=== PATIENT | male | born 1940 | race Caucasian/White ===

== ENCOUNTER 2017-04-17 20:19 | Inpatient (IN) | payer MEDICARE, OTHER ==
[~2017-04-17] VITALS: Ht 152.4 cm; Wt 63.5 kg
--- NOTE | ~2017-04-17 | PR ---
[place], [place] PROGRESS NOTE NAME: MARLIN CASTANEDA UNIT #: [id number] ROOM: 316 DOCTOR: VIOLA SEGOVIA BIRTHDATE: [birth year] DOS: CHIEF COMPLAINT: "I ate all I want." SUMMARY OF THE VISIT: He was seen in the dining room where his tray had already been taken away. His appetite is fair to poor. He states that he slept well last night. His affect is flat. His mood is appropriate. He just wanders the unit pretty much all day. He is not quite sure what to do with himself. PLAN: We will today increase his Namenda to 10 mg b.i.d. and continue to titrate his dementia meds in order to get him to a point where he can be safely discharged. We will continue to engage him in individual and clark milieu and discharge him to the least restrictive environment when psychologically stable. Viola Segovia NP CM:PNTRANS [phone] VIOLA SEGOVIA 04/22/172139 interface
--- NOTE | ~2017-04-17 | DS ---
[place], [place] DISCHARGE SUMMARY NAME: MARLIN CASTANEDA UNIT #: [id number] ROOM: 316 DOCTOR: VIOLA SEGOVIA BIRTHDATE: [birth year] DOS: 04/24/2017 CHIEF COMPLAINT: This morning, hello. HISTORY OF PRESENT ILLNESS: He came in from [facility] where he is indeed disruptive, urinating all over the facility. He came into the ER at [facility] and was medically cleared and then was sent here for admission to the Behavioral Health Unit. Since he has been here, he has had his medications adjusted. He had a urine sample sent. His Exelon patch has been increased since he has been here. He has been started on Namenda and that dosage has been maximized to treat the dementia. He is now stable. He is walking around the unit, becomes anxious a little bit whenever there is a lot going on the unit, but otherwise, he is very stable. He kind of walks around, does not exit seeking or anything like that. He has been sleeping well through the night according to the staff. MENTAL STATUS AT DISCHARGE: He is alert, pleasantly confused. He is oriented pretty much to himself. DIAGNOSIS: Brief psychotic disorder. DISPOSITION: He will be discharged to an assisted living facility of his family's choice. director of physiotherapy services is making arrangements for that. His scripts have been printed and will be sent with him whenever he is ready to go. He is stable at this time. Viola Segovia NP CM:DISCHARG [phone] VIOLA SEGOVIA 04/24/17 1314 interface
--- NOTE | ~2017-04-17 | PR ---
[place], [place] PROGRESS NOTE NAME: MARLIN CASTANEDA UNIT #: [id number] ROOM: 316 DOCTOR: VIOLA SEGOVIA BIRTHDATE: [birth year] DOS: 04/21/2017 CHIEF COMPLAINT: "I don't know." SUMMARY OF THE VISIT: He was seen ambulating around the dining room kind of looking lost. He had eaten just a small portion of his breakfast, but started eating again when he was redirected back to it. He remains confused, but very pleasant and alert. His voice is very low tone. He has had no behaviors according to staff. Slept well. Over the weekend, we started him on vitamin B and vitamin D because he did show deficiencies. PLAN: Today, I increased his Exelon patch to 13.3 mg daily to maximize therapy. He was also started on Vraylar, which we will likely titrate up. He did not appear to be having any kind of hallucinations or anything like that today. The plan is to further titrate his Exelon and his Namenda to maximize them and also to increase the Vraylar as needed. He was in an assisted living. He will most likely be discharged to a more secure level of care. We will continue to try to engage him in individual and clark milieu and discharge him when he is psychologically stable. Viola Segovia NP CM:NIKOLAI [phone] VIOLA SEGOVIA 04/22/17250 interface
--- NOTE | ~2017-04-17 | PR ---
[place], [place] PROGRESS NOTE NAME: MARLIN CASTANEDA UNIT #: [id number] ROOM: 316 DOCTOR: AZIZA GODWIN BIRTHDATE: [birth year] DOS: 04/20/2017 CHIEF COMPLAINT: The patient is nonverbal. SUMMARY OF VISIT: The patient was much more alert and oriented this morning. He was sitting in a Shelby chair, eating oatmeal. I will ask him questions, he will look at me and then he will look back at the table and start picking at things on the table. Nursing noted that he is very restless. He is responding some type of visual hallucination. He crawls on the floor at times and picks at things. He is however up and walking, which he had not been before. He is redirectable and pleasant. There is no aggression there, but as he is becoming more alert, the restlessness and the hallucinations are more apparent. MENTAL STATUS: Alert and oriented to person. I do not know about place and time. Visual hallucinations definitely may be some delusions, no paranoia. No adryan or hypomania, exceedingly poor short term memory. PLAN: I started him on the vitamin B and D yesterday because of his deficiencies. He is on the maximum dose of Exelon and Namenda for his dementia. No real behaviors just this hallucination going on so I am going to start Vraylar 3 mg q.a.m. and see if this will help break his psychosis. I also want to follow up with nursing and the hospitalist to see if they are planning on treating his urine from 04/18/2017, it looks like possible UTI. I do not know if this gets contaminated or if they just waiting for cultures and sensitivity. EDER GODWIN CNP CM:PNTRANS 44 AZIZA GODWIN 04/20/171644 interface
--- NOTE | ~2017-04-17 | PR ---
[place], [place] PROGRESS NOTE NAME: MARLIN CASTANEDA UNIT #: [id number] ROOM: 316 DOCTOR: VIOLA SEGOVIA BIRTHDATE: [birth year] DOS: CHIEF COMPLAINT: This morning, the patient was nonverbal, but did smile. SUMMARY OF THE VISIT: He was sitting at the dining room table waiting his breakfast. His voice is still very low tone. He is still very confused, but pleasantly so. He is not wandering as much as he had been either. He was smiling when I was asking him questions and did reply to the questions. He reported though that he did not sleep and staff reported that he slept for about 7 hours last night. He was started on Vraylar yesterday and we are continuing to adjust that as we need to. PLAN: We will continue to monitor him, adjust the Vraylar as we need to and plan for discharge in the next couple of days to the least restrictive environment. We will continue to try to engage him in individual and clark milieu. Viola Segovia NP CM:NIKOLAI [phone] VIOLA SEGOVIA 04/23/172025 interface
--- NOTE | ~2017-04-17 | PR ---
[place], [place] PROGRESS NOTE NAME: MARLIN CASTANEDA UNIT #: [id number] ROOM: 316 DOCTOR: AZIZA GODWIN BIRTHDATE: [birth year] DOS: 04/19/2017 CHIEF COMPLAINT: Nonverbal. SUMMARY OF VISIT: The patient was assessed in the dining room where he was reclining in a Shelby chair. He does have UTI. He was nonverbal with me. Does prefer to sleep in the chair at night. He did so for about 3 hours. Nursing is still trying to encourage him, redirect him into the bed, but for now he does seem to prefer the chair. So, we need to monitor for decubitus ulcers, get him moving around a little bit more, get that UTI treated and go from there. MENTAL STATUS EXAMINATION: He is alert to name only. No overt signs of auditory or visual hallucinations, delusions, paranoia, adryan or hypomania. Very poor short-term memory. PLAN: His labs came back. His vitamin B12 is elevated a little bit, this is fine. He is severely vitamin D deficient. I started him on vitamin D supplementation 50,000 international units every week. We increased his Exelon yesterday. He is on the maximum dose of both the Exelon and Namenda at this point in time. There are no behaviors, so I am not going to really add anything. I want to see how he does over the next 24 hours. Let see as the UTI gets treated if some of these behaviors, the facility was seeing, subside and we can go from there. EDER GODWIN CNP CM:PNTRANS [phone] AZIZA GODWIN 04/19/17 1124 interface
--- NOTE | ~2017-04-17 | PR ---
[place], [place] PROGRESS NOTE NAME: MARLIN CASTANEDA UNIT #: [id number] ROOM: 316 DOCTOR: PRASANTHDAYSILYNDA BIRTHDATE: [birth year] DOS: 04/18/2017 INITIAL PSYCH NOTE CHIEF COMPLAINT: "I am fine." HISTORY OF THE PRESENT ILLNESS: He was admitted from assisted living facility where he was being disruptive. He was urinating all over the place. He was picking at the carpet to the point where the family lost their security deposit on his apartment. He was taken to [facility] and medically cleared and then admitted here to the [facility]. He slept well last night. PAST MEDICAL HISTORY: Dementia, depression, hematuria, and vitamin B12 deficiency. MENTAL STATUS EXAMINATION: He is awake and alert, oriented to self pretty much. Mood seems to be appropriate at this time. Staff reports that they had no problems with him overnight at all. His speech is very low tone. He gives very short answers to questions. There is no hypomania or adryan. No overt audiovisual hallucinations and he does not seem to have any delusions or paranoia. His processing is a little bit slowed. When you ask him a question, he does make eye contact, but it takes him a little while to answer the question. Kind of difficult to ascertain his long and short term memory, but I would think there would be some impairment there due to his dementia. The diagnosis for admission is a brief psychotic disorder. This is a new behavior for him. PLAN: We will get some baseline labs. We need to still collect a urine on him. They have not been able to collect that yet. We also have increased his Exelon patch with the goal to maximize the therapy for his dementia on both the Exelon and the Namenda. He does not appear to be anxious at this time, but has a history of anxiety, so we will address that if it does come out. [place], [place] PROGRESS NOTE NAME: MARLIN CASTANEDA UNIT #: [id number] ROOM: 316 DOCTOR: PRASANTHLYNDA TAVAREZ BIRTHDATE: [birth year] Lynda Segovia NP CM:PNJAMEEL [phone] LYNDA SEGOVIA 04/18/172336 interface
[~2017-04-17 20:19] MED LIST: ARICEPT5 M1 PO; HYDR1000 IM
[2017-04-17] MEDS ORDERED: KLONOPIN0.5 MG PO ×2 (20:43→20:49)
[2017-04-17] MEDS ORDERED: CELEXA20 MG PO (20:44)
[2017-04-17] MEDS ORDERED: NAMENDA10 MG PO (20:46)
[2017-04-17] MEDS ORDERED: EXELON4.6 MG/24 TD (20:47)
[2017-04-17] MEDS ORDERED: ATIVAN0.5 MG PO (20:48)
[2017-04-17] MEDS ORDERED: HYDR1000 IM (21:03)
[2017-04-17 22:39] VITALS: BP 126/59
[2017-04-18 06:58] LABS: BASO % 0.8 % (0.0-1.0); EOS # 0.2 10*3/uL (0.0-0.4); EOS % 3.8 % (1.0-4.0); HEMATOCRIT 41.3 % (42.0-52.0); HEMOGLOBIN 14.6 g/dl (14.0-18.0); LYMPH # 0.6 10*3/uL (1.3-4.4); LYMPH % 13.6 % (27.0-41.0); MEAN CELL VOLUME 89.2 fl (80.0-94.0); MEAN CORPUSCULAR HGB 31.5 pg (27.0-31.0); MEAN CORPUSCULAR HGB CONC 35.4 g/dl (33.0-37.0); MEAN PLATELET VOLUME 9.3 fl (9.6-12.3); MONO # 0.4 10*3/uL (0.1-1.0); MONO % 8.3 % (3.0-9.0); NEUT # 3.5 10*3/uL (2.3-7.9); NEUT % 73.3 % (47.0-73.0); PLATELET COUNT AUTOMATED 151 10*3/uL (130-400); RED BLOOD COUNT 4.63 10*6/uL (4.50-5.90); RED CELL DISTRI WIDTH 11.9 % (0-14.5); WHITE BLOOD COUNT 4.7 10*3/uL (4.8-10.8)
[2017-04-18 07:11] LABS: ALBUMIN 3.4 gm/dl (3.1-4.5); ALKALINE PHOSPHATASE 100 U/L (45-117); BILIRUBIN, TOTAL 0.7 mg/dl (0.2-1.0); BUN 12 mg/dl (7-24); CARBON DIOXIDE 30 mmol/L (21-32); CHLORIDE 106 mmol/L (98-107); CHOLESTEROL 191 mg/dL (<200); EST GLOM FILT AFRICAN AMERICAN > 60 ml/min; GLUCOSE 83 mg/dL (65-99); POTASSIUM 4.4 mmol/L (3.5-5.1); SGOT/AST 21 IU/L (3-35); SGPT/ALT 17 U/L (12-78); SODIUM 142 mmol/L (136-145); TOTAL PROTEIN 6.4 gm/dL (6.4-8.2); TRIGLYCERIDES 127 mg/dl (<150); VLDL CHOLESTEROL 25 mg/dL (6-40)
[2017-04-18 07:13] LABS: HDL CHOLESTEROL 46 mg/dl (40-60); LDL CHOLESTEROL 120 mg/dL (9-159)
[2017-04-18 07:20] LABS: THYROID STIM HORMONE (HS) 0.764 uIU/ml (0.358-4.75)
[2017-04-18 08:00] VITALS: BP 109/55
[2017-04-18 09:51] LABS: VITAMIN D, 25-HYDROXY 10.4 ng/mL (30-100)
[2017-04-18 09:52] LABS: FOLIC ACID 17.49 ng/mL (>5.38)
[2017-04-18 13:52] LABS: BILIRUBIN NEGATIVE (NEGATIVE); BLOOD 3+ (NEGATIVE); CLARITY CLOUDY (CLEAR); COLOR YELLOW (YELLOW); GLUCOSE NEGATIVE (NEGATIVE); KETONE NEGATIVE (NEGATIVE); LEUKO ESTERASE TRACE (NEGATIVE); NITRITE NEGATIVE (NEGATIVE); PH 6.5 (5.0-9.0); PROTEIN NEGATIVE (NEGATIVE)
[2017-04-18 14:34] LABS: BACTERIA 3+; RBC 41-50 rbc/hpf (0-2); URINE REFLEX COMMENT YES (NO); WBC 21-30 wbc/hpf (0-5)
[2017-04-18 20:11] VITALS: BP 154/62
[2017-04-19 07:49] LABS: VITAMIN D, 25-HYDROXY 16.4 ng/mL (30-100)
[2017-04-19 08:25] VITALS: BP 141/69
[2017-04-19 19:57] VITALS: BP 124/72
[2017-04-20 08:00] VITALS: BP 125/68
[2017-04-20 19:45] VITALS: BP 129/76
[2017-04-21 07:50] VITALS: BP 110/69
[2017-04-21 19:59] VITALS: BP 134/84
[2017-04-22 08:02] VITALS: BP 139/74
[2017-04-22 20:00] VITALS: BP 129/82
[2017-04-23 09:50] VITALS: BP 145/71
[2017-04-23 19:50] VITALS: BP 144/82
[2017-04-24 08:33] VITALS: BP 139/79
[2017-04-24] MEDS ORDERED: EXELON13.3 MG/21 T (09:22)
[2017-04-24] MEDS ORDERED: MEMANTINE HCL10 MG PO (09:22)
[2017-04-24] MEDS ORDERED: VRAYLAR3 MG PO (09:22)
[2017-04-24] MEDS ORDERED: CITALOPRAM HYDR20 MG PO (09:22)
[2017-04-24] MEDS ORDERED: TYLENOL325 M2 PO (14:07)
[2017-04-24] MEDS ORDERED: VITAMIN D50000 I3 PO (14:07)
[2017-04-24 20:12] VITALS: BP 133/54
== END 2017-04-24 20:40 | disposition home or self-care (01) | DRG 885 ==
LOC: 3N 20:19
PROVIDERS: Registered Nurse
DX: F23 Brief psychotic disorder (principal); G30.8 Other Alzheimer's disease; N39.0 Urinary tract infection, site not specified; F02.80 Dementia in other diseases classified elsewhere, unspecified severity, without behavioral disturbance, psychotic disturbance, mood disturbance, and anxiety; E53.8 Deficiency of other specified B group vitamins; F32.9 Major depressive disorder, single episode, unspecified; Z79.899 Other long term (current) drug therapy

== ENCOUNTER 2017-08-22 12:07 | Inpatient (IN) | payer MEDICARE, OTHER ==
[~2017-08-22] VITALS: Ht 167.6 cm; Wt 57.8 kg
[~2017-08-22 12:07] MED LIST changes: +ATIVAN0.5 MG PO; +CELEXA20 MG PO; +CITALOPRAM HYDR20 MG PO; +EXELON13.3 MG/21 T; +EXELON4.6 MG/24 TD; +KLONOPIN0.5 MG PO; +MEMANTINE HCL10 MG PO; +NAMENDA10 MG PO; +TYLENOL325 M2 PO; +VITAMIN D50000 I3 PO; +VRAYLAR3 MG PO
[2017-08-22 12:21] VITALS: BP 123/68
[2017-08-22 12:49] LABS: BASO % 0.8 % (0.0-1.0); EOS # 0.1 10*3/uL (0.0-0.4); HEMATOCRIT 40.3 % (42.0-52.0); HEMOGLOBIN 14.1 g/dl (14.0-18.0); LYMPH # 0.7 10*3/uL (1.3-4.4); LYMPH % 18.4 % (27.0-41.0); MEAN CORPUSCULAR HGB 31.8 pg (27.0-31.0); MEAN PLATELET VOLUME 9.5 fl (9.6-12.3); MONO # 0.4 10*3/uL (0.1-1.0); MONO % 11.5 % (3.0-9.0); NEUT # 2.4 10*3/uL (2.3-7.9); NEUT % 66.3 % (47.0-73.0); PLATELET COUNT AUTOMATED 127 10*3/uL (130-400); RED BLOOD COUNT 4.43 10*6/uL (4.50-5.90); RED CELL DISTRI WIDTH 12.6 % (0-14.5); WHITE BLOOD COUNT 3.7 10*3/uL (4.8-10.8)
[2017-08-22 12:58] LABS: ACT PARTIAL THROMBO TIME 24.7 SECONDS (20.8-31.5)
[2017-08-22 13:03] LABS: ALBUMIN 3.8 gm/dl (3.1-4.5); ALKALINE PHOSPHATASE 86 U/L (45-117); BUN 15 mg/dl (7-24); CHLORIDE 107 mmol/L (98-107); CREATININE 1.26 mg/dL (0.70-1.30); LIPASE 389 U/L (73-393); MAGNESIUM 2.1 mg/dL (1.5-2.1); SGOT/AST 21 IU/L (3-35); SGPT/ALT 19 U/L (12-78); SODIUM 142 mmol/L (136-145); TOTAL PROTEIN 6.6 gm/dL (6.4-8.2)
[2017-08-22 13:04] LABS: TROPONIN I < 0.015 ng/ml (<0.045)
--- NOTE | 2017-08-22 14:28 | NUR ---
HAD TO STRAIGHT CATH PATIENT FOR URINE. NOTICED BLOOD IN URINE AFTER CATH
[2017-08-22 14:37] LABS: BILIRUBIN 1+ (NEGATIVE); BLOOD 3+ (NEGATIVE); CLARITY CLOUDY (CLEAR); COLOR RED (YELLOW); GLUCOSE NEGATIVE (NEGATIVE); KETONE TRACE (NEGATIVE); LEUKO ESTERASE TRACE (NEGATIVE); NITRITE POSITIVE (NEGATIVE); PH 5.5 (5.0-9.0); SPECIFIC GRAVITY 1.025 (1.005-1.030)
[2017-08-22 14:46] LABS: RBC TNTC rbc/hpf (0-2)
--- NOTE | 2017-08-22 16:39 | NUR ---
PATIENT HAS IV NORMAL SALINE INFUSING AT 125 AT TIME OF ADMISSION
[2017-08-22 17:10] VITALS: BP 141/79
[2017-08-22] MEDS ORDERED: EXEL13.31 T (17:12)
--- NOTE | 2017-08-22 17:15 | NUR ---
Time: 1714 A 77 year old MALE admitted to under services of EMILY QUISPE DO. Pt. arrived via stretcher from ER. Chief complaint: UTI, METABOLIC ENC. MELYSSA METCALF
--- NOTE | 2017-08-22 17:33 | NUR ---
[facility] CALLED RE: TO SEE IF PT HAD FLU SHOT. NURSE THERE STATES SHE DOESN'T KNOW. NOTHING IS IN PT CHART. SON IS HERE WITH PT, BUT STATES HIS DAUGHTER TAKES CARE OF THAT. MESSAGE LEFT ON [employer] PHONE FOR A CALL BACK TO SEE IF PT HAD FLU SHOT. WILL AWAIT RETURN CALL.
--- NOTE | 2017-08-22 17:42 | NUR ---
GRADDAUGHTER CALLS AND STATES PT HAD FLU SHOT THE END OF JUNE.
--- NOTE | 2017-08-22 17:48 | NUR ---
MED REC COMPLETE. DR ROBLES CALLED AND NOTIFIED.
--- NOTE | 2017-08-22 19:30 | NUR ---
PATIENT SETTING OFF BED ALARM. PATIENT CONFUSED, DOESNT ANSWER QUESTION. PATIENT NOT COMBATIVE. PATIENT IS DRINKING WATER. STILL SLUMPED OVER, DOESNT WANT TO LIE DOWN. WILL CONTINUE TO MONITOR.
[2017-08-22 20:00] VITALS: BP 141/78
[2017-08-23] VITALS: BP 96/50
[2017-08-23 06:15] LABS: BASO % 1.1 % (0.0-1.0); EOS # 0.1 10*3/uL (0.0-0.4); HEMATOCRIT 35.1 % (42.0-52.0); HEMOGLOBIN 12.1 g/dl (14.0-18.0); LYMPH # 0.5 10*3/uL (1.3-4.4); LYMPH % 13.3 % (27.0-41.0); MEAN CELL VOLUME 92.6 fl (80.0-94.0); MEAN CORPUSCULAR HGB 31.9 pg (27.0-31.0); MEAN CORPUSCULAR HGB CONC 34.5 g/dl (33.0-37.0); MONO # 0.3 10*3/uL (0.1-1.0); NEUT # 2.7 10*3/uL (2.3-7.9); NEUT % 73.1 % (47.0-73.0); PLATELET COUNT AUTOMATED 100 10*3/uL (130-400); RED BLOOD COUNT 3.79 10*6/uL (4.50-5.90); RED CELL DISTRI WIDTH 12.8 % (0-14.5); WHITE BLOOD COUNT 3.7 10*3/uL (4.8-10.8)
[2017-08-23 06:26] LABS: BUN 13 mg/dl (7-24); CHLORIDE 108 mmol/L (98-107); CHOLESTEROL 178 mg/dL (<200); CREATININE 1.07 mg/dL (0.70-1.30); MAGNESIUM 2.1 mg/dL (1.5-2.1); PHOSPHOROUS 2.9 mg/dL (2.5-4.9); POTASSIUM 3.9 mmol/L (3.5-5.1); SGOT/AST 15 IU/L (3-35); SGPT/ALT 15 U/L (12-78); SODIUM 144 mmol/L (136-145); TOTAL PROTEIN 5.3 gm/dL (6.4-8.2); TRIGLYCERIDES 71 mg/dl (<150); VLDL CHOLESTEROL 14 mg/dL (6-40)
[2017-08-23 06:27] LABS: INTERNATIONAL NORM RATIO 1.1 (2.0-3.5)
[2017-08-23 06:33] LABS: ALKALINE PHOSPHATASE 72 U/L (45-117); HDL CHOLESTEROL 52 mg/dl (40-60); LDL CHOLESTEROL 112 mg/dL (9-159); THYROID STIM HORMONE (HS) 0.904 uIU/ml (0.358-4.75)
[2017-08-23 08:00] VITALS: BP 140/76
[2017-08-23 09:11] LABS: VITAMIN D, 25-HYDROXY 91.3 ng/mL (30-100)
--- NOTE | 2017-08-23 09:23 | NUR ---
PATIENT IS SITTING UP IN BED. PATIENT IS AWAKE AND ALERT, BUT IS UNABLE TO ANSWER QUESTIONS. PATIENT NEED ASSISTANCE W/FEEDING. PATIENT HAS IV SITE WRAPPED AND TAPED TO PREVENT PULLING. PATIENT WAS PLEASANT AND COOPERATIVE DURING ASSESSMENT. CALL LIGHT SYSTEM WAS REINFORCED AND WITHIN REACH.
[2017-08-23 12:00] VITALS: BP 164/84
[2017-08-23 16:00] VITALS: BP 148/89
--- NOTE | 2017-08-23 18:50 | NUR ---
IM GEODON GIVEN FOR AGITATION. WILL MONITOR.
--- NOTE | 2017-08-23 19:30 | NUR ---
PT. SLEEPING UPON ENTERING ROOM. PT AWAKENED TO NAME AND SHOULDER SHAKE. PT. GIVEN GEODON AT 1841 BY PREVIOUS NURSE. PT. WENT BACK TO SLEEP, WITH EASY, UNLABORED RESPIRATIONS ON INSPECTION. ASSESSMENT COMPLETED AT THIS TIME, S1S2, LUNGS DIMINISHED BUT CLEAR T/O. CALL LIGHT WITHIN REACH, BED IN LOWEST POSITION, WHEELS LOCKED. WILL MONITOR FREQUENTLY FOR EFFECTS OF GEODON.
[2017-08-23 20:00] VITALS: BP 134/65
[2017-08-24] VITALS: BP 98/46
[2017-08-24 02:25] VITALS: BP 140/57
--- NOTE | 2017-08-24 04:53 | NUR ---
ENTERED PTS. ROOM AT THIS TIME TO CONTINUE MONITORING FOR EFFECTS OF GEODON. PT. WAS ATTEMPTING TO GET UP FROM BED AT THIS TIME, PT. WAS ASKED IF HE WAS COMFORTABLE IN BED, PT. STATED HE WAS NOT. PT. REPOSITIONED FOR COMFOR AT THIS TIME WITH HOB>30. PT. STATED THIS POSITION WAS COMFORTABLE. BED ALARM CONTINUES TO BE ON, WILL CONTINUE TO MONITOR PT.
[2017-08-24 08:00] VITALS: BP 140/68
--- NOTE | 2017-08-24 08:30 | NUR ---
Patient resting quietly with no c/o discomfort. Respirations easy and regular. Bed alarm on. Vital signs stable. No overt distress. MELYSSA METCALF R
[2017-08-24 12:00] VITALS: BP 146/77
--- NOTE | 2017-08-24 13:24 | NUR ---
FAMILY IN TO VISIT WITH PATIENT.
--- NOTE | 2017-08-24 15:24 | NUR ---
PT AMBUALTED IN HALLS WITH ASSITANCE FROM STAFF. PT UP IN CHAIR. BODY ALARM APPLIED. CALL LIGHT IN REACH. WILL MONITOR
[2017-08-24 16:00] VITALS: BP 118/67
--- NOTE | 2017-08-24 19:30 | NUR ---
PT. IS SITTING IN CHAIR AT BEDSIDE, WITH BODY ALARM INTACT, AND CALL LIGHT WITHIN REACH. NO DISTRESS IS NOTED AT THIS TIME, SEE SHIFT ASSESSMENT.
--- NOTE | 2017-08-24 19:50 | NUR ---
NEW IV INSERTED D/T PT. REMOVING OLD ONE.
[2017-08-24 20:00] VITALS: BP 123/60
--- NOTE | 2017-08-24 22:20 | NUR ---
NEW IV STARTED D/T PT. REMOVING THE OTHER. 22G IN THE LEFT ARM IS NEW IV.
[2017-08-25] VITALS: BP 131/65
--- NOTE | 2017-08-25 00:01 | NUR ---
PRN RESTORIL GIVEN TO PT. FOR INCREASED INSOMNIA. WILL MONITOR EFFECTIVENESS.
--- NOTE | 2017-08-25 00:30 | NUR ---
PRN RESTORIL EFFECTIVE, PT. IS COMFORTABLY RESTING AT THIS TIME. RESPIRATIONS ARE EASY AND REGULAR WILL CONTINUE TO MONITOR.
--- NOTE | 2017-08-25 01:47 | NUR ---
24 HR chart check completed.
[2017-08-25 06:31] LABS: BASO % 0.6 % (0.0-1.0); EOS # 0.1 10*3/uL (0.0-0.4); EOS % 2.8 % (1.0-4.0); HEMATOCRIT 35.3 % (42.0-52.0); HEMOGLOBIN 12.1 g/dl (14.0-18.0); LYMPH # 0.6 10*3/uL (1.3-4.4); LYMPH % 17.2 % (27.0-41.0); MEAN CELL VOLUME 92.4 fl (80.0-94.0); MEAN CORPUSCULAR HGB 31.7 pg (27.0-31.0); MEAN CORPUSCULAR HGB CONC 34.3 g/dl (33.0-37.0); MEAN PLATELET VOLUME 9.5 fl (9.6-12.3); MONO # 0.3 10*3/uL (0.1-1.0); MONO % 8.1 % (3.0-9.0); NEUT # 2.6 10*3/uL (2.3-7.9); PLATELET COUNT AUTOMATED 92 10*3/uL (130-400); RED BLOOD COUNT 3.82 10*6/uL (4.50-5.90); RED CELL DISTRI WIDTH 12.7 % (0-14.5); WHITE BLOOD COUNT 3.6 10*3/uL (4.8-10.8)
[2017-08-25 07:00] LABS: BUN 9 mg/dl (7-24); CHLORIDE 108 mmol/L (98-107); CREATININE 0.91 mg/dL (0.70-1.30); POTASSIUM 3.7 mmol/L (3.5-5.1); SODIUM 142 mmol/L (136-145)
[2017-08-25 08:00] VITALS: BP 133/64
--- NOTE | 2017-08-25 09:00 | NUR ---
PHYSICAL THERAPY PT eval completed on 4E this morning; please see eval for details. Moderate level eval completed with chart review, nursing interview and results of eval. Gaits on level 40' with constant hand held assist of 1 at varying CG assist to mod assist for directional cues; to maintain forward motion and to prevent loss of balance with multiple gait deviations. Recommend SNF dc. Isabela Padron, PT
--- NOTE | 2017-08-25 09:16 | NUR ---
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
--- NOTE | 2017-08-25 09:28 | NUR ---
Patient is resident of [facility], will contact [facility] and grand daughter ([facility]) for discharge plans.
--- NOTE | 2017-08-25 11:10 | NUR ---
Attempted to call grand daughter papa who is [facility] to discuss discharge plans, unable to contact. Left message for return call.
--- NOTE | 2017-08-25 11:33 | NUR ---
Talked with granddaughter amna ([facility]) who stated she just talked with Anum at [facility] assisted [facility]. Patient is ok to return there because he is in their "locked unit". They are aware of patients condition and behaviors and will allow him to return when ready for discharge.
--- NOTE | 2017-08-25 11:46 | NUR ---
Grand daughter amna will transport patient back to [facility] upon discharge, she works until 330 pm so just leave a voicemail message on her cell phone listed on face sheet.
[2017-08-25 12:00] VITALS: BP 140/69
[2017-08-25] MEDS ORDERED: CIPRO500 MG PO (12:14)
--- NOTE | 2017-08-25 13:49 | NUR ---
Left voicemail on grand daughters cell phone that patient is being discharged today. She wanted to transport him back to the [facility] and will do this after work around 4PM. Notified nursing staff.
--- NOTE | 2017-08-25 15:19 | NUR ---
Spoke with Anum from [facility], confirmed patient resides in locked unit and is ok to return upon discharged. Grand daughter Sandrita will transport this evening around 4 pm,
--- NOTE | 2017-08-25 15:49 | NUR ---
SN CALLED REPORT TO NURSE AT [facility] FOR DISCHARGE
--- NOTE | 2017-08-25 16:23 | NUR ---
Discharge instructions reviewed with patient/family. FAMILY receptive and verbalizes understanding. Follow-up care arranged. Written instructions given to patient/family. DAVID GONZALEZ
== END 2017-08-25 16:23 | disposition home or self-care (01) | DRG 689 ==
LOC: ED 12:07 → 4E 15:09 → EDHOLD 15:09 → 4E 15:49
PROVIDERS: Emergency Medicine; Family Medicine; Internal Medicine; ADMIT Internal Medicine
DX: N39.0 Urinary tract infection, site not specified (principal); G93.41 Metabolic encephalopathy; D69.6 Thrombocytopenia, unspecified; G30.8 Other Alzheimer's disease; F02.81 Dementia in other diseases classified elsewhere, unspecified severity, with behavioral disturbance; E86.0 Dehydration; Z66 Do not resuscitate; Z51.5 Encounter for palliative care; R31.9 Hematuria, unspecified; F32.9 Major depressive disorder, single episode, unspecified; E53.8 Deficiency of other specified B group vitamins; Z87.891 Personal history of nicotine dependence; Z84.89 Family history of other specified conditions; Z79.899 Other long term (current) drug therapy

== ENCOUNTER 2017-10-19 10:49 | Emergency (ER) | payer MEDICARE, OTHER ==
[~2017-10-19] VITALS: Wt 59.0 kg
[~2017-10-19 10:49] MED LIST changes: +CIPRO500 MG PO; +EXEL13.31 T
[2017-10-19 11:14] LABS: BASO % 0.9 % (0.0-1.0); EOS % 0.7 % (1.0-4.0); HEMATOCRIT 39.3 % (42.0-52.0); HEMOGLOBIN 13.8 g/dl (14.0-18.0); LYMPH # 0.5 10*3/uL (1.3-4.4); LYMPH % 10.5 % (27.0-41.0); MEAN CELL VOLUME 90.8 fl (80.0-94.0); MEAN CORPUSCULAR HGB 31.9 pg (27.0-31.0); MEAN CORPUSCULAR HGB CONC 35.1 g/dl (33.0-37.0); MEAN PLATELET VOLUME 9.9 fl (9.6-12.3); MONO # 0.3 10*3/uL (0.1-1.0); MONO % 6.1 % (3.0-9.0); NEUT # 3.6 10*3/uL (2.3-7.9); NEUT % 81.6 % (47.0-73.0); PLATELET COUNT AUTOMATED 111 10*3/uL (130-400); RED BLOOD COUNT 4.33 10*6/uL (4.50-5.90); RED CELL DISTRI WIDTH 12.2 % (0-14.5); WHITE BLOOD COUNT 4.5 10*3/uL (4.8-10.8)
[2017-10-19 11:33] LABS: ALBUMIN 3.7 gm/dl (3.1-4.5); ALKALINE PHOSPHATASE 74 U/L (45-117); BUN 18 mg/dl (7-24); CHLORIDE 107 mmol/L (98-107); CREATININE 1.13 mg/dL (0.70-1.30); POTASSIUM 3.9 mmol/L (3.5-5.1); SGOT/AST 15 IU/L (3-35); SGPT/ALT 17 U/L (12-78); SODIUM 144 mmol/L (136-145); TOTAL PROTEIN 6.5 gm/dL (6.4-8.2)
[2017-10-19 11:34] LABS: TROPONIN I < 0.015 ng/ml (<0.045)
[2017-10-19 12:12] LABS: BILIRUBIN 1+ (NEGATIVE); BLOOD 3+ (NEGATIVE); CLARITY SL CLOUDY (CLEAR); COLOR YELLOW (YELLOW); GLUCOSE NEGATIVE (NEGATIVE); KETONE NEGATIVE (NEGATIVE); LEUKO ESTERASE NEGATIVE (NEGATIVE); NITRITE NEGATIVE (NEGATIVE)
[2017-10-19 12:19] LABS: URINE AMPHETAMINES < 1000 (1000ng/ml); URINE BARBITURATES < 200 (200ng/ml); URINE BENZODIAZEPINES < 200 (200ng/ml); URINE CANNABINOIDS (THC) < 50 (50ng/ml); URINE COCAINE < 300 (300ng/ml); URINE METHADONE < 300 (300ng/ml); URINE OPIATES < 300 (300ng/ml)
[2017-10-19 12:20] LABS: RBC TNTC rbc/hpf (0-2); URINE PHENCYCLIDINE < 25 (25ng/ml)
[2017-10-19 12:55] VITALS: BP 152/88
== END 2017-10-19 14:34 | disposition home or self-care (01) ==
LOC: ED 10:49
PROVIDERS: Student in an Organized Health Care Education/Training Program
DX: F03.90 Unspecified dementia, unspecified severity, without behavioral disturbance, psychotic disturbance, mood disturbance, and anxiety (principal); F32.9 Major depressive disorder, single episode, unspecified; Z87.891 Personal history of nicotine dependence; Z98.890 Other specified postprocedural states; Z79.899 Other long term (current) drug therapy